=== PATIENT | female | born 1940 | race Caucasian/White ===

== ENCOUNTER 2017-07-25 08:30 | Inpatient (IN) | payer OTHER ==
[~2017-07-25] VITALS: Ht 152.4 cm; Wt 68.9 kg
[2017-07-25] MEDS ORDERED: ATACAND32 MG PO (10:18)
[2017-07-25] MEDS ORDERED: NORVASC5 MG PO (10:19)
[2017-07-25] MEDS ORDERED: CARDURA XL4 MG PO (10:19)
[2017-07-25] MEDS ORDERED: TOPROL XL25 MG PO (10:19)
[2017-08-08] MEDS ORDERED: XARELTO10 MG PO (08:11)
[2017-08-08] MEDS ORDERED: INTEGRA PLUS C1 EACH PO (08:11)
[2017-08-08] MEDS ORDERED: OXYC1TAB9 PO (08:11)
== END 2017-08-08 14:28 | disposition home health service (06) | DRG 470 ==
LOC: O/R 08-05 05:00 → SURH 08-05 05:00
PROVIDERS: Orthopaedic Surgery Sports Medicine
PROC: 0SR90JZ Replacement of Right Hip Joint with Synthetic Substitute, Open Approach (ICD-10-PCS; principal; 2017-08-05 09:00)
PROC: 30233N1 Transfusion of Nonautologous Red Blood Cells into Peripheral Vein, Percutaneous Approach (ICD-10-PCS; 2017-08-06)
DX: M16.11 Unilateral primary osteoarthritis, right hip (principal)